=== PATIENT | male | born 1990 | race African-American/Black ===

== ENCOUNTER 2021-06-19 06:47 | Emergency (ER) | payer OTHER, SELFPAY ==
--- NOTE | ~2021-06-19 | CT_ITS ---
EXAMINATION: CT brain wo con EXAM DATE: 06/19/2021 07:51 INDICATION: dizziness, hallucination TECHNIQUE: Spiral CT of the head was performed without contrast. Axial, coronal and sagittal images were reviewed. The dose-length product (DLP) for this examination was 605.33 mGy-cm. The exposure w as tailored according to patient size, and iterative reconstruction (ASIR) was used as additional dos e reduction technique. There is no prior study for comparison. FINDINGS: There is no acute intraparenchymal hemorrhage. No evidence of intraparenchymal brain mass lesion. No evidence of acute infarction. There is no mass effect or midline shift. The ventricles are normal in size. There are no extra-axial collections. There are no acute calvarial fractures. T he orbits are unremarkable. Soft tissue is unremarkable. The visualized sinuses and mastoid air rudi ls are well aerated. IMPRESSION: 1. No acute intracranial findings. Reviewed, dictated and finalized at location A. PRESSURE CLEANER
[2021-06-19 06:48] VITALS: BP 130/109; PULSE 99; RESP 18; TEMP 36.9; O2SAT 100
[2021-06-19 06:52] VITALS: RESP 18; O2SAT 100
--- NOTE | 2021-06-19 07:10 | ECG_ITS ---
Measurements Intervals [place] Rate: 99 P: 54 NH: 143 QRS: 29 QRSD: 89 T: -44 QT: 346 QTc: 444 Interpretive Statements SINUS RHYTHM MINIMAL Q WAVES- HIGH LATERAL LEADS ST-T WAVE ABNORMALITY IN INFERIOR LEADS- CONSIDER ISCHEMIA BASELINE ARTIFACT- II, III, AVR, AVL, AVF, V1-V6 ABNORMAL ECG Electronically Signed On 06-19-2021 7:59:51 [employer] CALL [employer] REPRESENTATIVE by Juan Trinidad D.O.
[2021-06-19 07:14] VITALS: PULSE 108
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
[2021-06-19 07:38] LABS: Basophils Percent Auto 0.3 % (0.2-1.2); Hematocrit 38.5 % (42.0-52.0); Hemoglobin 12.4 g/dL (14.0-18.0); Lymphocytes Absolute Auto 1.09 K/mm3 (0.9-3.2); Lymphocytes Percent Auto 31.1 % (18.3-44.2); Mean Corpuscular HGB Conc 32.2 g/dl (32-36); Mean Corpuscular Hemoglobin 28.4 pg (26-34); Mean Corpuscular Volume 88.3 fl (80-100); Mean Platelet Volume 11.2 fl (7.4-10.4); Monocytes Absolute Auto 0.3 K/mm3 (0.1-0.6); Monocytes Percent Auto 7.4 % (2.6-8.5); Neutrophils Absolute Auto 2.1 K/mm3 (1.3-6.7); Neutrophils Percent Auto 61.2 % (45.5-73.1); Platelet Count Result 183 k/mm3 (150-375); Red Blood Count 4.36 M/mm3 (4.6-6.20); Red Cell Distribution Width 14.1 % (11.5-14.5); White Blood Count 3.5 K/mm3 (4.5-10.0)
[2021-06-19 07:45] LABS: Alanine Aminotransferase 21 U/L (4-50); Albumin Level 4.4 g/dL (3.5-5.1); Alkaline Phosphatase 68 U/L (38-126); Anion Gap 16 mmol/L (8-16); Aspartate Amino Transferase 32 U/L (17-59); Bilirubin,Total 0.8 mg/dL (0.2-1.3); Blood Urea Nitrogen 19 mg/dL (9-20); Calcium 9.4 mg/dL (8.4-10.2); Carbon Dioxide 24 mmol/L (22-30); Chloride 102 mmol/L (98-107); Estimated CRCL calculation 85 ml/min; Estimated Glomerular Filt Rate > 60; Glucose 109 mg/dL (65-110); Potassium 3.5 mmol/L (3.4-5.0); Sodium 142 mmol/L (137-145)
--- NOTE | 2021-06-19 07:46 | PC.NURSE ---
Pt. taken to X ray
[2021-06-19 07:56] LABS: Add Urine Microscopic? YES; Appearance Urine Clear (Clear); Bacteria Urine Trace /hpf; Bilirubin Urine Negative (Negative); Blood Urine Negative (Negative); Color Urine Yellow (Yellow); Glucose Urine UA Negative (Negative); Ketones Urine 2+ mg/dL (Negative); Leukocyte Esterase Ur 1+ LEU/UL (Negative); Mucus Urine Heavy /lpf; Nitrate Urine Negative (Negative); Protein Urine 2+ mg/dL (Negative); Squamous Epithelial Cell Urine Occasional /hpf (Few); WBC Urine 16-20 /hpf
[2021-06-19] MEDS: ONDANSETRON INJ 4 MG/2 ML VIAL IV PUSH (07:59)
[2021-06-19 08:01] LABS: Specific Grav Ur 1.036 (1.001-1.035)
[2021-06-19 08:02] LABS: Barbiturate Screen Urine Negative (Negative); Benzodiazepines Screen Urine Negative (Negative)
[2021-06-19 08:03] LABS: Cannabinoid Screen Urine Positive (Negative); Cocaine Screen Urine Negative (Negative); Opiate Screen Urine Negative (Negative)
[2021-06-19 08:04] LABS: Methadone Screen Urine Negative (Negative); Phencyclidine Screen Urine Negative (Negative)
--- NOTE | 2021-06-19 08:30 | PC.NURSE ---
Pt. stated nausea has improved.
[2021-06-19 08:45] VITALS: BP 116/73; PULSE 103; RESP 12; O2SAT 100
[2021-06-19 09:13] LABS: Amphetamine Screen Urine Positive (Negative)
[2021-06-19] MEDS: TETANUS,DIPHTHERIA,AC PERTUSSIS ADULT (0.5 ML) BOOSTRIX IM (10:10)
[2021-06-19 10:17] VITALS: PULSE 105; RESP 12
== END 2021-06-19 10:19 | disposition home or self-care (01) ==
PROVIDERS: Emergency Provider Emergency Medicine
DX: L08.9 Local infection of the skin and subcutaneous tissue, unspecified (principal); F15.10 Other stimulant abuse, uncomplicated; Z23 Encounter for immunization
CPT/HCPCS: 10060; 36415; 70450; 80053; 80307; 81001; 85025; 87070; 87075; 87086; 87205; 90471; 90715; 93005; 96374; 99284; J2405

== ENCOUNTER 2021-10-02 10:57 | Emergency (ER) | payer OTHER, SELFPAY ==
--- NOTE | ~2021-10-02 | CT_ITS ---
EXAMINATION: CT abdomen pelvis wo con DATE: 10/02/2021 14:35 INDICATION: Kidney stone . Bilateral flank pain, nausea and vomiting. TECHNIQUE: Computed tomography (CT) of the abdomen and pelvis was performed without intravenous contr ast. Automated exposure control and iterative reconstruction technique were employed. The dose-length product was 517.33 mGy-cm. COMPARISON: None FINDINGS: Lower thorax: Unremarkable Liver: Normal. Biliary/Gallbladder: Gallbladder is normal. No bile duct dilation. Spleen: Normal. Pancreas: No mass or duct dilation. Adrenals:No mass. Kidneys: No mass, stone, or hydronephrosis. GI tract: No small or large bowel dilation. Normal appendix. Mesentery/Peritoneum: No ascites, mass, or free air. Retroperitoneum: No mass. Pelvis: Pelvic organs are within normal limits. Soft Tissues: Soft tissues and body wall unremarkable. Bones: No acute osseous finding. IMPRESSION: No acute abdominopelvic process. No nephrolithiasis or obstructive uropathy. Reviewed, dictated and finalized at location K.
[2021-10-02 10:58] VITALS: PULSE 74; RESP 16; TEMP 36.6; O2SAT 100
[2021-10-02 11:27] LABS: Appearance Urine Clear (Clear); Bilirubin Urine 1+ (Negative); Blood Urine Negative (Negative); Color Urine Yellow (Yellow); Glucose Urine UA Negative (Negative); Ketones Urine Negative (Negative); Leukocyte Esterase Ur Negative LEU/UL (Negative); Nitrate Urine Negative (Negative); Protein Urine Trace mg/dL (Negative); Specific Grav Ur >= 1.030 (1.001-1.035)
[2021-10-02 11:27] LABS: Basophils Percent Auto 0.5 % (0.2-1.2); Eosinophils Percent Auto 0.9 % (0-4.4); Hematocrit 39.7 % (42.0-52.0); Hemoglobin 12.8 g/dL (14.0-18.0); Lymphocytes Absolute Auto 1.88 K/mm3 (0.9-3.2); Lymphocytes Percent Auto 43.3 % (18.3-44.2); Mean Corpuscular HGB Conc 32.2 g/dl (32-36); Mean Corpuscular Volume 89.8 fl (80-100); Mean Platelet Volume 11.8 fl (7.4-10.4); Monocytes Absolute Auto 0.3 K/mm3 (0.1-0.6); Monocytes Percent Auto 6.2 % (2.6-8.5); Neutrophils Absolute Auto 2.1 K/mm3 (1.3-6.7); Neutrophils Percent Auto 49.1 % (45.5-73.1); Platelet Count Result 171 k/mm3 (150-375); Red Blood Count 4.42 M/mm3 (4.6-6.20); Red Cell Distribution Width 13.8 % (11.5-14.5); White Blood Count 4.3 K/mm3 (4.5-10.0)
[2021-10-02 11:31] LABS: Bacteria Urine Trace /hpf; Mucus Urine Moderate /lpf; Squamous Epithelial Cell Urine Few /hpf (Few); WBC Urine 16-20 /hpf
[2021-10-02 11:32] LABS: Add Urine Microscopic? YES
[2021-10-02 11:41] LABS: Alanine Aminotransferase 14 U/L (6-50); Albumin Level 4.5 g/dL (3.5-5.1); Alkaline Phosphatase 68 U/L (38-126); Anion Gap 9 mmol/L (8-16); Aspartate Amino Transferase 25 U/L (17-59); Bilirubin,Total 0.6 mg/dL (0.2-1.3); Blood Urea Nitrogen 16 mg/dL (9-20); Calcium 8.8 mg/dL (8.4-10.2); Carbon Dioxide 22 mmol/L (22-30); Chloride 108 mmol/L (98-107); Estimated CRCL calculation 95 ml/min; Estimated Glomerular Filt Rate > 60; Glucose 113 mg/dL (65-110); Lipase 57 U/L (23-300); Potassium 3.5 mmol/L (3.4-5.0); Sodium 139 mmol/L (137-145)
[2021-10-02 13:48] VITALS: BP 134/72; PULSE 62; RESP 18; O2SAT 99
--- NOTE | 2021-10-02 13:55 | ED.GENADULT ---
HPI - General Adult General Chief complaint: Unspecified Stated complaint: kidneys hurt Time Seen by Provider: 10/02/21 13:49 Source: patient Mode of arrival: ambulatory Limitations: no limitations History of Present Illness HPI narrative: 30 years old -Romanian male complaining of lower back pain for 1 week. Worse with movement, better if he lays down flat. 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 Patient not on any medications at home, smokes, does not drink and uses marijuana occasionally. Currently he denies any fever, chills, nausea, vomiting, diarrhea, urinary symptoms. Related Data Allergies Allergy/AdvReac Type Severity Reaction Status Date / Time No Known Allergies Allergy Verified 10/02/21 11:02 Review of Systems Review of Systems: All systems reviewed & are unremarkable except as noted in HPI and below Exam Narrative: General appearance: Well-developed, well-nourished Skin: Normal color Head: Normocephalic, nontraumatic Eyes: Clear conjunctiva ENT: Oropharynx normal, ears normal, nose normal Neck: Supple, nontender Chest and respiratory: Airway patent, no respiratory distress, no accessory muscle use Heart: Regular rate/rhythm Abdomen: Soft, nontender, no organomegaly, quiet bowel sounds Vascular: Normal peripheral pulses, normal capillary refill. Musculoskeletal: Diffuse tenderness all over the back including thoracic and lumbar area. No bruises, no swelling, no rash Neurologic: Alert and oriented ?3, CHANNEL TURNER is normal as tested, no gross motor deficit Course Course Emergency Course: Musculoskeletal pain is my concern. Vital Signs Vital signs: Vital Signs Temperature 36.6 C 10/02/21 10:58 Pulse Rate 74 10/02/21 10:58 Respiratory Rate 16 10/02/21 10:58 Pulse Oximetry 100 10/02/21 10:58 Temperature 36.6 C 10/02/21 10:58 Pulse Rate 62 10/02/21 13:48 Respiratory Rate 18 10/02/21 13:48 Blood Pressure 134/72 10/02/21 13:48 Pulse Oximetry 99 10/02/21 13:48 Medical Decision Making Differential Diagnosis Differential Diagnosis: Muscular strain/strain sprain Vital Signs Vital Signs: Vital Signs Temperature 36.6 C 10/02/21 10:58 Pulse Rate 74 10/02/21 10:58 Respiratory Rate 16 10/02/21 10:58 Pulse Oximetry 100 10/02/21 10:58 Temperature 36.6 C 10/02/21 10:58 Pulse Rate 62 10/02/21 13:48 Respiratory Rate 18 10/02/21 13:48 Blood Pressure 134/72 10/02/21 13:48 Pulse Oximetry 99 10/02/21 13:48 Lab Data Result diagrams: 10/02/21 11:06 10/02/21 11:06 Labs: Lab Results 10/02/21 10/02/21 10/02/21 Range/Units 11:06 11:06 11:19 WBC 4.3 L (4.5-10.0) K/mm3 RBC 4.42 L (4.6-6.20) M/mm3 Hgb 12.8 L (14.0-18.0) g/dL Hct 39.7 L (42.0-52.0) % MCV 89.8 (80-100) fl MCH 29.0 (26-34) pg MCHC 32.2 (32-36) g/dl RDW 13.8 (11.5-14.5) % Plt Count 171 (150-375) k/mm3 MPV 11.8 H (7.4-10.4) fl Immature Gran % (Auto) 0.0 (0-0.5) % Neut % (Auto) 49.1 (45.5-73.1) % Lymph % (Auto) 43.3 (18.3-44.2) % [place] % (Auto) 6.2 (2.6-8.5) % Eos % (Auto) 0.9 (0-4.4) % Baso % (Auto) 0.5 (0.2-1.2) % Lymph # (Auto) 1.88 (0.9-3.2) K/mm3 [place] # (Auto) 0.3 (0.1-0.6) K/mm3 Eos # (Auto) 0.0 (0-0.3) K/mm3 Baso # (Auto) 0.0 (0.0-0.1) K/mm3 Abs Immat Gran (auto) 0.00 (0.00-0.031) K/mm3 Absolute Neuts (auto) 2.1 (1.3-6.7) K/mm3 Absolute Nucleated RBC 0.0 (0.0-0.012) K/mm3 Nucleated RBC % 0.0 (0.0-0.2) % Sodium 139 (137-145) mmol/L Potassium 3.5 (3.4-5.0) mmol/L Chloride 108 H (98-107) mmol/L Carbon Dioxide 22
== END 2021-10-02 14:59 | disposition left against medical advice (07) ==
PROVIDERS: Family Medicine; Emergency Provider Emergency Medicine
DX: M54.50 Low back pain, unspecified (principal); F17.200 Nicotine dependence, unspecified, uncomplicated
CPT/HCPCS: 36415; 74176; 80053; 81001; 83690; 85025; 87086; 99284

== ENCOUNTER 2022-12-21 22:39 | Emergency (ER) | payer OTHER, SELFPAY ==
--- NOTE | ~2022-12-21 | XR_ITS ---
XR hand LT min 3V DATE: 12/22/2022 00:45 INDICATION: Laceration between third and fourth digits TECHNIQUE: 3 views COMPARISON: None FINDINGS: No radiopaque soft tissue foreign body. No fracture, dislocation, periosteal reaction or kumar ne destruction. IMPRESSION: Negative Reviewed, dictated and finalized at location A. IMPRESSION: Negative
[2022-12-22 00:23] VITALS: BP 146/98; PULSE 51; RESP 16; TEMP 36.4; O2SAT 100
[2022-12-22 02:15] VITALS: PULSE 61; RESP 18; O2SAT 100
[2022-12-22] MEDS: TETANUS,DIPHTHERIA,AC PERTUSSIS ADULT (0.5 ML) BOOSTRIX IM (02:21)
--- NOTE | 2022-12-22 04:06 | ED.WOUNDLAC ---
HPI - Wound/Laceration General Chief Complaint: Wound/Laceration Stated Complaint: L HAND LACERATION Time Seen by Provider: 12/22/22 02:07 Source: patient Mode of arrival: ambulatory Limitations: no limitations History of Present Illness HPI narrative: This is a 32-year-old male that presents to the emergency department with injury to left hand with laceration. Reports he was at work and slipped and fell. He noticed when he was getting up that he had a laceration on his left hand. He is unsure how he cut his hand. He is not up-to-date on his tetanus vaccination. Reports bleeding and pain to the area. Denies decreased range of motion or numbness. Related Data Allergies Allergy/AdvReac Type Severity Reaction Status Date / Time No Known Allergies Allergy Verified 10/02/21 11:02 Review of Systems Review of Systems: CONSTITUTIONAL: Denies fever SKIN: Reports laceration NEUROLOGIC: Denies numbness All systems reviewed & are unremarkable except as noted in HPI and below PMFSH Past Medical History Medical History (Updated 12/22/22 @ 04:13 by Yazmin Rodriguez PA-C) No active medical problems Social History Social History (Updated 12/22/22 @ 04:13 by Yazmin Rodriguez PA-C) Smoking status: Current some day smoker Exam Narrative: GENERAL: Well-appearing, well-nourished, and in no acute distress. HEAD: Normocephalic, atraumatic. EYES: EOMI. EXTREMITIES: Normal range of motion. No edema or obvious deformity. Normal sensation. Normal capillary refill. 3cm linear laceration into subcutaneous tissue of left hand between 2nd and 3rd digits SKIN: Warm, dry, no rash. NEURO: No focal deficits. Alert and oriented x3. PSYCH: Normal mood and affect Course Course Emergency Course: Patient was educated on wound care Vital Signs Vital signs: Vital Signs Temperature 97.6 F 12/22/22 00:23 Pulse Rate 51 L 12/22/22 00:23 Respiratory Rate 16 12/22/22 00:23 Blood Pressure 146/98 H 12/22/22 00:23 Pulse Oximetry 100 12/22/22 00:23 Oxygen Delivery Room Air 12/22/22 00:23 Temperature 97.6 F 12/22/22 00:23 Pulse Rate 61 12/22/22 02:15 Respiratory Rate 18 12/22/22 02:15 Blood Pressure 146/98 H 12/22/22 00:23 Pulse Oximetry 100 12/22/22 02:15 Oxygen Delivery Room Air 12/22/22 00:23 MDM - Wound/Laceration MDM Narrative Medical decision making narrative: Patient presents to the emergency department for laceration to the left hand sustained just prior to arrival. His wound is irrigated and closed with sutures. He was updated on tetanus. He was educated on wound care. He is to follow up with primary provider. He was given warnings to return to the ER Differential Diagnosis Differential diagnosis: Likely laceration and abrasion Imaging Data My impression: Hand x-ray: No acute osseous abnormalities or evidence of foreign body Critical Care Time Critical Care Time Critical Care Time: No Discharge Plan Discharge Clinical Impression: Laceration Patient Disposition: Home, Self-Care Condition: Stable Instructions: Care For Your Stitches (ED), Laceration (ED) Additional Instructions: Return to the emergency department if you experience fever, redness or swelling of your wound, abnormal drainage from your wound, or any other symptoms that are concerning to you. Apply antibiotic ointment daily. Do not soak the wound. Clean with mild soap and water daily Follow-up with your primary care doctor for suture removal in 10-14 days. Prescriptions: No Action sulfamethoxazole-trimethoprim [Bactrim DS] 800-160 mg tablet 1 tablet PO Q12H Qty: 14 0RF cephalexin 500 mg capsule 500 mg PO Q8H 7 Days Qty: 21 0RF Follow-up/Referrals: PHYSICIAN,[facility] [Primary Care Provider] - Alfredito Mendieta MD [Physician] - 2 Weeks Stand Alone Forms: Work/School Release IP
--- NOTE | 2022-12-22 04:24 | PC.NURSE ---
EDP Yazmin administered lidocaine.
== END 2022-12-22 04:24 | disposition home or self-care (01) ==
PROVIDERS: Emergency Provider Physician Assistant
DX: S61.412A Laceration without foreign body of left hand, initial encounter (principal); Z23 Encounter for immunization; F17.200 Nicotine dependence, unspecified, uncomplicated; W01.119A Fall on same level from slipping, tripping and stumbling with subsequent striking against unspecified sharp object, initial encounter
CPT/HCPCS: 12001; 73130; 90471; 90715; 99283

== ENCOUNTER 2023-07-05 22:13 | Emergency (ER) | payer OTHER, SELFPAY ==
--- NOTE | ~2023-07-05 | CT_ITS ---
EXAMINATION: CT brain wo con DATE: 07/05/2023 23:03 INDICATION: Confusion. Lightheadedness. TECHNIQUE: Computed tomography (CT) of the head was performed without intravenous contrast. The mA wa s adjusted according to patient size. Iterative reconstruction technique was employed. The dose-lengt h product was 681.00 mGy-cm. COMPARISON: Head CT 06/19/2021 FINDINGS: There is no intracranial hemorrhage, acute infarction, or abnormal intracranial mass lesion . The ventricles are normal in size. The orbits are normal. There is mild mucosal thickening in the p aranasal sinuses. The mastoid air cells are normal. IMPRESSION: 1. Normal brain. Reviewed, dictated and finalized at location E. ERCIAL TECHNICIAN IMPRESSION: 1. Normal brain.
[2023-07-05 22:12] VITALS: BP 138/78; PULSE 78; RESP 15; TEMP 36.6; O2SAT 99
[2023-07-05 22:41] LABS: Alanine Aminotransferase 38 U/L (6-50); Alkaline Phosphatase 65 U/L (38-126); Anion Gap 10 mmol/L (8-16); Aspartate Amino Transferase 61 U/L (17-59); Basophils Percent Auto 0.2 % (0.2-1.2); Bilirubin,Total 1.2 mg/dL (0.2-1.3); Blood Urea Nitrogen 24 mg/dL (9-20); Calcium 9.5 mg/dL (8.4-10.2); Carbon Dioxide 29 mmol/L (22-30); Chloride 100 mmol/L (98-107); Eosinophils Percent Auto 0.1 % (0-4.4); Estimated Glomerular Filt Rate 57; Glucose 112 mg/dL (65-110); Hematocrit 43.1 % (42.0-52.0); Hemoglobin 13.5 g/dL (14.0-18.0); Immature Granulocyte Absolute 0.03 K/mm3 (0.00-0.031); Immature Granulocyte Percent A 0.3 % (0-0.5); Lymphocytes Absolute Auto 0.75 K/mm3 (0.9-3.2); Lymphocytes Percent Auto 7.2 % (18.3-44.2); Mean Corpuscular HGB Conc 31.3 g/dl (32-36); Mean Corpuscular Hemoglobin 28.6 pg (26-34); Mean Corpuscular Volume 91.3 fl (80-100); Mean Platelet Volume 10.8 fl (7.4-10.4); Monocytes Absolute Auto 0.5 K/mm3 (0.1-0.6); Monocytes Percent Auto 4.8 % (2.6-8.5); Neutrophils Absolute Auto 9.2 K/mm3 (1.3-6.7); Neutrophils Percent Auto 87.4 % (45.5-73.1); Platelet Count Result 182 k/mm3 (150-375); Potassium 3.7 mmol/L (3.4-5.0); Red Blood Count 4.72 M/mm3 (4.6-6.20); Red Cell Distribution Width 12.8 % (11.5-14.5); Sodium 139 mmol/L (137-145); White Blood Count 10.5 K/mm3 (4.5-10.0)
[2023-07-05 22:42] LABS: Ethanol < 10 mg/dL (<10)
--- NOTE | 2023-07-05 23:05 | PC.NURSE ---
this rn assumed care of patient. this rn took patient report from montse arroyo.
[2023-07-05 23:08] LABS: Prothrombin Time 13.7 Seconds (11.1-14.7)
[2023-07-05 23:09] LABS: Partial Thromboplastin Time 28.2 SECONDS (22.3-36.8)
--- NOTE | 2023-07-06 | PC.NURSE ---
Report from JODY Everett. Pt moved to ED15.
[2023-07-06 00:22] LABS: SARS-CoV-2 RNA PCR Negative (Negative)
--- NOTE | 2023-07-06 00:50 | PC.NURSE ---
Pt appears to be sleeping, resp even and nonlabored.
[2023-07-06 03:04] VITALS: BP 138/90; PULSE 65; RESP 12; TEMP 36.9; O2SAT 100
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
[2023-07-06 03:50] LABS: Appearance Urine Clear (Clear); Bacteria Urine None Seen /hpf; Bilirubin Urine Negative (Negative); Blood Urine Negative (Negative); Color Urine Dark Yellow (Yellow); Glucose Urine UA Negative (Negative); Ketones Urine 2+ mg/dL (Negative); Leukocyte Esterase Ur Negative LEU/UL (Negative); Need Manual Microscopic Reviewed; Nitrate Urine Negative (Negative); Protein Urine Trace mg/dL (Negative); RBC Urine 0-2 /hpf (0-2); Specific Grav Ur 1.034 (1.001-1.035); Squamous Epithelial Cell Urine Occasional /hpf (Few)
[2023-07-06 03:51] LABS: Add Urine Microscopic? YES
[2023-07-06 04:04] LABS: Barbiturate Screen Urine Negative (Negative); Benzodiazepines Screen Urine Negative (Negative)
[2023-07-06 04:28] LABS: Amphetamine Screen Urine Positive (Negative)
[2023-07-06 04:32] LABS: Cannabinoid Screen Urine Positive (Negative); Cocaine Screen Urine Positive (Negative); Methadone Screen Urine Negative (Negative); Opiate Screen Urine Negative (Negative); Phencyclidine Screen Urine Negative (Negative)
--- NOTE | 2023-07-06 06:06 | PC.NURSE ---
Crisis at bedside.
[2023-07-06] MEDS: cefTRIAXone 1 GM VIAL 0.5 GM IM (06:31)
[2023-07-06] MEDS: WATER, STERILE FOR INJECTION 10 ML VIAL XX (06:31)
[2023-07-06 06:40] VITALS: BP 125/89; PULSE 77; RESP 16; TEMP 36.9; O2SAT 100
--- NOTE | 2023-07-06 06:49 | PC.NURSE ---
Crisis made safety plan with pt and determined he is safe for discharge. Pt agreeable with plan. VS rechecked and meds administered per JUL.
== END 2023-07-06 06:51 | disposition home or self-care (01) ==
PROVIDERS: Physician Assistant; Emergency Provider Emergency Medicine
DX: F19.14 Other psychoactive substance abuse with psychoactive substance-induced mood disorder (principal); N39.0 Urinary tract infection, site not specified; Z11.52 Encounter for screening for COVID-19; F17.200 Nicotine dependence, unspecified, uncomplicated
CPT/HCPCS: 36415; 70450; 80053; 80307; 81001; 84443; 85025; 85610; 85730; 87086; 87635; 96372; 99284; J0696